=== PATIENT | male | born 1985 | race Caucasian/White ===

== ENCOUNTER 2022-12-16 13:22 | Outpatient (CLI) | payer OTHER, SELFPAY ==
[2022-12-16 21:54] LABS: Cholesterol* 265 mg/dL (90-199); Glucose* 98 mg/dL (60-115); HDL Cholesterol* 70 mg/dL (>=40); LDL Cholesterol Calculated 164 mg/dL (<100); Triglycerides* 154 mg/dL (40-149)
== END 2022-12-16 13:23 | disposition home or self-care (01) ==
PROVIDERS: PCP Emergency Medicine; Visit Provider Emergency Medicine
DX: Z13.1 Encounter for screening for diabetes mellitus (principal); Z13.6 Encounter for screening for cardiovascular disorders
CPT/HCPCS: 80061; 82947

== ENCOUNTER 2024-02-18 08:47 | Outpatient (CLI) | payer OTHER, SELFPAY | END 2024-02-18 08:48 | disposition home or self-care (01) | PROVIDERS: PCP Emergency Medicine; Visit Provider Emergency Medicine | DX: Z00.00 Encounter for general adult medical examination without abnormal findings (principal); E78.5 Hyperlipidemia, unspecified; E66.9 Obesity, unspecified; F41.9 Anxiety disorder, unspecified; Z13.1 Encounter for screening for diabetes mellitus; Z13.6 Encounter for screening for cardiovascular disorders; Z68.31 Body mass index [BMI] 31.0-31.9, adult | CPT/HCPCS: 80053; 80061; 84443 ==

== ENCOUNTER 2025-03-02 10:46 | Outpatient (CLI) | payer OTHER, SELFPAY | END 2025-03-02 10:47 | disposition home or self-care (01) | PROVIDERS: PCP Emergency Medicine; Visit Provider Emergency Medicine | DX: E78.2 Mixed hyperlipidemia (principal); R74.01 Elevation of levels of liver transaminase levels; Z13.29 Encounter for screening for other suspected endocrine disorder | CPT/HCPCS: 80053; 80061; 84443 ==

== ENCOUNTER 2025-06-15 09:33 | Outpatient (CLI) | payer OTHER, SELFPAY | END 2025-06-15 09:34 | disposition home or self-care (01) | PROVIDERS: PCP Emergency Medicine; Visit Provider Physician Assistant Medical | DX: R79.89 Other specified abnormal findings of blood chemistry (principal); E78.2 Mixed hyperlipidemia; E66.9 Obesity, unspecified; R41.89 Other symptoms and signs involving cognitive functions and awareness | CPT/HCPCS: 80061; 80076; 82306; 82607 ==

== ENCOUNTER 2025-06-22 07:39 | Outpatient (CLI) | payer OTHER, SELFPAY ==
--- NOTE | 2025-06-22 07:15 | CRLHL7_ITS ---
For Patients: As a result of the Century Cures Act, medical imaging exams and procedure reports are released immediately into your electronic medical record. You may view this report before your referring provider. If you have questions, please contact your health care provider. CLINICAL HISTORY: Abnormal blood chemistry FINDINGS: The patient`s liver is of normal size and has uniform echogenicity. The gallbladder is of normal size and there is no evidence of intraluminal stones or sludge. The gallbladder wall measures 1 mm in thickness. The common bile duct is of normal size and measures 3 mm in diameter at the level of the jenn hepatis. The pancreas appears normal. There is no evidence of a stone or hydronephrosis within the right kidney. The right kidney measures 11 cm in length. IMPRESSION: Unremarkable exam. Dictated by Zayra Weber MD @ 06/26/2025 1:14:06 PM (Electronically Signed)
== END 2025-06-22 07:40 | disposition home or self-care (01) ==
LOC: US 07:41
PROVIDERS: Visit Provider Physician Assistant Medical
DX: R79.89 Other specified abnormal findings of blood chemistry (principal)
CPT/HCPCS: 76705